=== PATIENT | female | born 1935 | race Caucasian/White ===

== ENCOUNTER 2016-12-12 12:03 | Day surgery (SDC) | payer MEDICARE, BC ==
[~2016-12-12] VITALS: Ht 152.4 cm; Wt 69.5 kg
[~2016-12-12 12:03] MED LIST: ALMACONE 360 M360 ML PO; ASPIRIN 81M81 MG/TA2 PO; ASPIRIN E.C. 8181 MG PO; CALCIUM & MAGNE1 CAP PO; CALCIUM 600MG+D1 TAB PO; CALCIUM PO; CALCIUM/MAGNESI1 T13 PO; COLACE 100100 MG/CAP PO; ERY-TAB250 M1 PO; FENTANYL 50MCG TOP; FLAXSEED OIL1000 MG PO; FLEXERIL 1010 MG/TAB PO; FLONASE NASAL S16 GM NS; FLONASEALLERGY NS; GLYCOLAX17 GM/PACK PO; HYDROCHLOR50 MG PO; KLOR-CON M2020 MEQ PO; LASIX 20MG TABL20 MG PO; LEVOXYL0.125 MG PO; LIDODERM 5% PATC1 EA TP; LIDODERM PATCH TP; LORTAB 5/500 501 TAB PO; LUTEIN20 M1 PO; LUTEIN20 MG PO; LYRICA 75MG CAP75 MG PO; LYRICA150 MG PO; LYRICA75 MG PO; MAGNESIUM250 M1 PO; MULTI VITAMINS1 TAB PO; MULTIPLE VITAMI1 CAP PO; MULTIVITAMIN1 CTB PO; MYLANTA 150 ML150 M1 PO; MYLANTA PO; NORCO 325 MG-7.1 TAB PO; OMEGA 31000 MG PO; OMEGA-3 1000 MG1 CAP PO; PREDNISONE 5MG5 MG PO; PREDNISONE10 MG PO; PREMPRO 0.625/21 TAB PO; PRILOSEC 20MG20 MG PO; PRILOTC PO; PROVENTIL0.09 MG/A1 IH; REMICADE V100 MG/VIA IV; ROXICODONE 55 MG/TAB PO; SOLU-MEDRO125 MG/21 IJ; SYNTHROID0.1 MG/TAB PO; SYNTHROID0.125 MG/T PO; SYNTHROID0.15 MG PO; TYLENOL 325MG325 MG PO; ULTRAM 50MG TAB50 MG PO; ULTRAM50 MG PO; VENTOLIN0.09 MG IH; VIT D PO; VITAMIN C500 MG PO; VITAMIN D 1001000 IU PO; VITAMIN D31000 IU; VITAMIND3 5000 PO; ZESTRIL 20MG TA20 MG PO; ZOFRAN 4MG T4 MG/TAB PO
[2016-12-12 13:09] VITALS: BP 101/60; PULSE 90; TEMP 98.7
[2016-12-12 13:45] VITALS: BP 114/49; PULSE 93; TEMP 98.2
[2016-12-12 14:00] VITALS: BP 124/73; PULSE 75
[2016-12-12 14:15] VITALS: BP 120/91; PULSE 82
== END 2016-12-12 14:25 | disposition home or self-care (01) ==
LOC: SDCO 12:03
DX: R05 Cough (principal); R06.00 Dyspnea, unspecified; R06.02 Shortness of breath; Z87.01 Personal history of pneumonia (recurrent); M06.9 Rheumatoid arthritis, unspecified; Z87.19 Personal history of other diseases of the digestive system; Z86.14 Personal history of Methicillin resistant Staphylococcus aureus infection; Z85.828 Personal history of other malignant neoplasm of skin; I10 Essential (primary) hypertension; I27.2 Other secondary pulmonary hypertension; Z79.899 Other long term (current) drug therapy; Z79.52 Long term (current) use of systemic steroids
CPT/HCPCS: J2704; J2920; J7120